=== PATIENT | female | born 1990 | race Caucasian/White ===

== ENCOUNTER → 2023-07-01 | Outpatient (CLI) | payer OTHER ==
[2023-07-01 10:12] LABS: BASO # 0.1 10^3/uL (0.0-0.2); BASO % 0.8 % (0.0-1.0); EOS # 0.1 10^3/uL (0.0-0.5); EOS % 1.4 % (0.0-3.0); HEMATOCRIT 42.2 % (36.0-47.0); HEMOGLOBIN 14.8 g/dl (12.0-15.5); LYMPH # 1.9 10^3/uL (1.5-5.0); LYMPH % 24.9 % (24.0-44.0); MEAN CORPUSCULAR HEMOGLOBIN 31.4 pg (27.0-33.0); MEAN CORPUSCULAR HGB CONC 35.1 g/dl (32.0-36.5); MEAN CORPUSCULAR VOLUME 89.4 fl (80.0-96.0); MONO # 0.6 10^3/uL (0.0-0.8); MONO % 7.5 % (2.0-8.0); NEUTROPHILS % 65.1 % (36.0-66.0); PLATELET COUNT, AUTOMATED 286 10^3/uL (150-450); RED BLOOD COUNT 4.72 10^6/uL (4.00-5.40); WHITE BLOOD COUNT 7.7 10^3/uL (4.0-10.0)
[2023-07-01 10:43] LABS: ALBUMIN 4.2 G/DL (3.2-5.2); ALKALINE PHOSPHATASE 62 U/L (46-116); ALT/SGPT 30 U/L (7.0-40); AST/SGOT 22 U/L (<34); BILIRUBIN,TOTAL 0.6 MG/DL (0.3-1.2); BLOOD UREA NITROGEN 9 MG/DL (9-23); CALCIUM LEVEL 9.3 MG/DL (8.5-10.1); CARBON DIOXIDE LEVEL 25 MMOL/L (20-31); CHLORIDE LEVEL 105 MMOL/L (98-107); GLOMERULAR FILTRATION RATE > 60.0 (>60); GLUCOSE, FASTING 90 MG/DL (60-100); POTASSIUM SERUM 4.5 MMOL/L (3.5-5.1); SODIUM LEVEL 137 MMOL/L (136-145); TOTAL PROTEIN 7.4 G/DL (5.7-8.2)
[2023-07-01 10:45] LABS: FREE T4 0.88 NG/DL (0.89-1.76); THYROID STIMULATING HORMONE 3.678 uIU/ML (0.55-4.78)
== END ==
LOC: M LAB 09:29
PROVIDERS: ATTEND Registered Nurse
DX: Z00.00 Encounter for general adult medical examination without abnormal findings (principal); J30.9 Allergic rhinitis, unspecified; R53.83 Other fatigue; R51.9 Headache, unspecified

== ENCOUNTER → 2023-08-09 | Outpatient (CLI) | payer OTHER ==
[2023-08-09 17:50] LABS: HEMATOCRIT 38.2 % (36.0-47.0); HEMOGLOBIN 13.7 g/dl (12.0-15.5); MEAN CORPUSCULAR HEMOGLOBIN 32.2 pg (27.0-33.0); MEAN CORPUSCULAR HGB CONC 35.9 g/dl (32.0-36.5); MEAN CORPUSCULAR VOLUME 89.7 fl (80.0-96.0); PLATELET COUNT, AUTOMATED 317 10^3/uL (150-450); RED BLOOD COUNT 4.26 10^6/uL (4.00-5.40); WHITE BLOOD COUNT 13.9 10^3/uL (4.0-10.0)
[2023-08-09 18:43] LABS: HIV 1&2 SCREEN NEGATIVE (NEGATIVE)
[2023-08-09 18:50] LABS: HEPATITIS C VIRUS ABY INDEX 0.03 INDEX (<0.8)
[2023-08-09 19:37] LABS: GC DNA AMPLIFICATION NEGATIVE (NEGATIVE)
== END ==
LOC: M PLALAB 15:13
PROVIDERS: ATTEND Advanced Practice Midwife
DX: Z34.01 Encounter for supervision of normal first pregnancy, first trimester (principal); Z3A.00 Weeks of gestation of pregnancy not specified

== ENCOUNTER → 2023-09-22 | Outpatient (CLI) | payer OTHER | LOC: M RAD 13:46 | PROVIDERS: ATTEND Obstetrics & Gynecology | DX: O09.92 Supervision of high risk pregnancy, unspecified, second trimester (principal); Z3A.17 17 weeks gestation of pregnancy; Z91.89 Other specified personal risk factors, not elsewhere classified ==

== ENCOUNTER → 2023-11-15 | Outpatient (CLI) | payer OTHER ==
[2023-11-15 13:39] LABS: GLUCOSE CHALLENGE TEST 1 HOUR 108 MG/DL (LESS THAN 140); HEMATOCRIT 36.8 % (36.0-47.0); HEMOGLOBIN 12.7 g/dl (12.0-15.5); MEAN CORPUSCULAR HEMOGLOBIN 32.2 pg (27.0-33.0); MEAN CORPUSCULAR HGB CONC 34.5 g/dl (32.0-36.5); MEAN CORPUSCULAR VOLUME 93.4 fl (80.0-96.0); PLATELET COUNT, AUTOMATED 246 10^3/uL (150-450); RED BLOOD COUNT 3.94 10^6/uL (4.00-5.40); WHITE BLOOD COUNT 9.6 10^3/uL (4.0-10.0)
[2023-11-15 14:21] LABS: HEPATITIS C VIRUS ABY INDEX < 0.02 INDEX (<0.8)
[2023-11-15 15:28] LABS: GC DNA AMPLIFICATION NEGATIVE (NEGATIVE)
== END ==
LOC: M PLALAB 08:18
PROVIDERS: ATTEND Advanced Practice Midwife
DX: Z34.82 Encounter for supervision of other normal pregnancy, second trimester (principal)

== ENCOUNTER → 2024-01-31 | Outpatient (REF) | payer OTHER | LOC: M SFHCWAGY 15:07 | PROVIDERS: ATTEND Specialist | DX: Z34.03 Encounter for supervision of normal first pregnancy, third trimester (principal) ==

== ENCOUNTER 2024-02-27 05:37 | Inpatient (IN) | payer OTHER ==
[2024-02-27] VITALS (53 sets, daily range): BP systolic 116–192; BP diastolic 56–106
[~2024-02-27] VITALS: Ht 149.9 cm; Wt 87.6 kg
[2024-02-27] MEDS: LACTATED RINGER'S 1000 ML IV STA (06:43)
[2024-02-27] MEDS ORDERED: METHYLERGONOVINE MALEATE 0.2MG/ML 1ML VIAL IM PRN (06:45)
[2024-02-27] MEDS ORDERED: LIDOCAINE 1% MDV 20ML VIAL INFIL PRN (06:45)
[2024-02-27] MEDS ORDERED: ACET325C5 PO (06:46)
[2024-02-27 07:06] LABS: HEMOGLOBIN 12.2 g/dl (12.0-15.5); MEAN CORPUSCULAR HEMOGLOBIN 31.4 pg (27.0-33.0); MEAN CORPUSCULAR HGB CONC 34.9 g/dl (32.0-36.5); PLATELET COUNT, AUTOMATED 158 10^3/uL (150-450); RED BLOOD COUNT 3.89 10^6/uL (4.00-5.40); WHITE BLOOD COUNT 8.9 10^3/uL (4.0-10.0)
[2024-02-27 08:08] LABS: HEPATITIS C VIRUS ABY INDEX < 0.02 INDEX (<0.8)
[2024-02-27 08:21] LABS: LDH LACTATE DEHYDROGENASE 206 U/L (120-246)
[2024-02-27 08:22] LABS: ALT/SGPT 13 U/L (7.0-40); AST/SGOT 22 U/L (<34); BILIRUBIN,TOTAL 0.2 MG/DL (0.3-1.2); CREATININE FOR GFR 0.77 MG/DL (0.55-1.30); GLOMERULAR FILTRATION RATE > 60.0 (>60)
[2024-02-27 08:48] LABS: TOTAL PROTEIN,RANDOM URINE 34.2 MG/DL (0.0-14.0)
[2024-02-27] MEDS: LR 1,000 ML IV SCH (09:55)
[2024-02-27] MEDS: OXYTOCIN DRIP 30 UNITS in IV 1 EA IV SCH (09:55)
[2024-02-27] MEDS: LABETALOL 100MG/20ML VIAL IV STA (11:40)
[2024-02-27] MEDS ORDERED: NALOXONE INJ 0.4MG/1ML VIAL IV PRN (12:25)
[2024-02-27] MEDS ORDERED: EPIDURAL/PCA KEYS XX PRN (12:25)
[2024-02-27] MEDS ORDERED: ePHEDrine SULFATE 25 MG/5 ML(5MG/ML) SYRINGE IVP PRN (12:25)
[2024-02-27] MEDS ORDERED: diphenhydrAMINE 50MG/ML VIAL IV PRN (12:25)
[2024-02-27] MEDS ORDERED: LR 500 ML IV PRN (12:25)
[2024-02-27] MEDS: FENTANYL/ROPIVACAINE/NACL BAG 100 ML EPIDURAL SCH (12:58)
[2024-02-27] MEDS: ceFAZolin SOD 2 GM in IV 1 EA IV ONE (19:56)
[2024-02-27] MEDS: ACETAMINOPHEN 500 MG TAB PO ONE (19:56)
[2024-02-27] MEDS: AMPICILLIN SOD/SULBACTAM SOD 3 GM in D5W MINI-BAG PLUS 100 ML IV ONE (20:28)
[2024-02-28] VITALS (31 sets, daily range): BP systolic 111–180; BP diastolic 58–95; O2SAT 97
[2024-02-28] MEDS: AMPICILLIN SOD/SULBACTAM SOD 3 GM in D5W MINI-BAG PLUS 100 ML IV ONE (02:38)
[2024-02-28] MEDS: ACETAMINOPHEN 500 MG TAB PO ONE (02:39)
[2024-02-28] MEDS: LABETALOL 100MG/20ML VIAL IV STA ×2 (03:02→04:01)
[2024-02-28 08:12] LABS: CORD GAS HCO3 V 19.2 MMOL/L; CORD GAS O2 SAT V 69.2 %; CORD GAS PCO2 V 33.5 mmHg; CORD GAS PH V 7.376 UNITS; CORD GAS PO2 V 30.9 mmHg; CORD GAS SBC V 19.7 MMOL/L; CORD GAS TCO2 V 20.2 MMOL/L
[2024-02-28 08:15] LABS: CORD GAS ABE A -7.6; CORD GAS HCO3 A 18.2 MMOL/L; CORD GAS O2 SAT A 40.2 %; CORD GAS PH A 7.298 UNITS; CORD GAS PO2 A 19.2 mmHg; CORD GAS SBC A 17.2 MMOL/L; CORD GAS TCO2 A 19.4 MMOL/L
[2024-02-28] MEDS: TRANEXAMIC ACID INJection 1,000 MG in NS 100 ML IV PRN (08:16)
[2024-02-28] MEDS: OXYTOCIN DRIP 30 UNITS in IV 1 EA IV PRN (08:16)
[2024-02-28] MEDS: CARBOPROST TROMETHAMINE 250 MCG/ML AMP IM PRN (08:17)
[2024-02-28] MEDS: ONDANSETRON 4MG 2ML VIAL IV PRN (08:29)
[2024-02-28] MEDS: LOPERAMIDE 2 MG CAPLET PO ONE (08:45)
[2024-02-28] MEDS ORDERED: ACETAMINOPHEN TAB 650MG DOSE (2X325MG) PO PRN (09:10)
[2024-02-28] MEDS ORDERED: ANUSOL HC CREAM 30GM TOP PRN (09:10)
[2024-02-28] MEDS ORDERED: MOM 30ML SUSPENSION UDC PO PRN (09:10)
[2024-02-28] MEDS ORDERED: DOCUSATE SODIUM 100MG CAPSULE PO PRN (09:10)
[2024-02-28] MEDS ORDERED: RHO(D) IMMUNE GLOBULIN/MALTOSE 500MCG(2500IU)/2.2ML VIAL (WINRHO) IM SCH (09:10)
[2024-02-28] MEDS: IBUPROFEN 800 MG TAB PO PRN (13:10)
[2024-02-28] MEDS: DIBUCAINE 1% OINTMENT 30GM TOP PRN (16:44)
[2024-02-28] MEDS: ACETAMINOPHEN 500 MG TAB PO PRN (16:45)
[2024-02-28] MEDS: IBUPROFEN 600MG TAB PO PRN (21:12)
[2024-02-29 06:00] VITALS: BP 120/70; O2SAT 99
[2024-02-29] MEDS: PRENATAL VITAMINS CHEWABLE TABLET PO SCH (07:54)
[2024-02-29 19:01] VITALS: BP 135/73; O2SAT 100
[2024-03-01 06:00] VITALS: BP 134/74; O2SAT 98
[2024-03-01] MEDS ORDERED: IBUP-1022 PO (08:32)
[2024-03-01] MEDS ORDERED: COLA100C5 PO (08:32)
[2024-03-01] MEDS ORDERED: NORE0.353 PO (08:32)
[2024-03-01] MEDS ORDERED: ACET-683 PO (08:32)
[2024-03-01] MEDS ORDERED: MEASLES,MUMPS,RUBELLA VACCINE INJ (MMR-II) SC.IMMUN ONE (09:00)
== END 2024-03-01 10:50 | disposition home or self-care (01) | DRG 560 ==
LOC: M LDO 05:37 → M LDI 05:54 → M OBS 02-28 14:23
PROVIDERS: ADMIT Obstetrics & Gynecology; ATTEND Advanced Practice Midwife
PROC: 3E033VJ Introduction of Other Hormone into Peripheral Vein, Percutaneous Approach (ICD-10-PCS; 2024-02-27)
PROC: 10E0XZZ Delivery of Products of Conception, External Approach (ICD-10-PCS; principal; 2024-02-28)
PROC: 0KQM0ZZ Repair Perineum Muscle, Open Approach (ICD-10-PCS; 2024-02-28)
PROC: 0HB7XZX Excision of Abdomen Skin, External Approach, Diagnostic (ICD-10-PCS; 2024-02-28)
DX: O14.14 Severe pre-eclampsia complicating childbirth (principal); O41.1230 Chorioamnionitis, third trimester, not applicable or unspecified; O72.1 Other immediate postpartum hemorrhage; Z3A.40 40 weeks gestation of pregnancy; O70.1 Second degree perineal laceration during delivery; R19.04 Left lower quadrant abdominal swelling, mass and lump; R19.03 Right lower quadrant abdominal swelling, mass and lump; Z37.0 Single live birth; O99.892 Other specified diseases and conditions complicating childbirth

== ENCOUNTER → 2024-07-27 | Outpatient (CLI) | payer OTHER ==
[~2024-07-27] MED LIST: ACET-683 PO; ACET325C5 PO; COLA100C5 PO; IBUP-1022 PO; NORE0.353 PO
[2024-07-27 12:02] LABS: BASO # 0.1 10^3/uL (0.0-0.2); BASO % 0.9 % (0.0-1.0); EOS # 0.2 10^3/uL (0.0-0.5); EOS % 2.5 % (0.0-3.0); HEMOGLOBIN 12.6 g/dl (12.0-15.5); LYMPH # 2.5 10^3/uL (1.5-5.0); LYMPH % 39.4 % (24.0-44.0); MEAN CORPUSCULAR HEMOGLOBIN 25.5 pg (27.0-33.0); MEAN CORPUSCULAR HGB CONC 31.5 g/dl (32.0-36.5); MEAN CORPUSCULAR VOLUME 80.8 fl (80.0-96.0); MONO # 0.5 10^3/uL (0.0-0.8); MONO % 7.1 % (2.0-8.0); NEUTROPHILS # 3.2 10^3/uL (1.5-8.5); NEUTROPHILS % 49.9 % (36.0-66.0); PLATELET COUNT, AUTOMATED 329 10^3/uL (150-450); RED BLOOD COUNT 4.95 10^6/uL (4.00-5.40); WHITE BLOOD COUNT 6.4 10^3/uL (4.0-10.0)
[2024-07-27 12:32] LABS: ALBUMIN 4.1 G/DL (3.2-5.2); ALKALINE PHOSPHATASE 103 U/L (35-104); ALT/SGPT 24 U/L (7.0-40); AST/SGOT 19 U/L (<34); BILIRUBIN,TOTAL 0.5 MG/DL (0.3-1.2); BLOOD UREA NITROGEN 12 MG/DL (9-23); CARBON DIOXIDE LEVEL 28 MMOL/L (20-31); CHLORIDE LEVEL 107 MMOL/L (98-107); CREATININE FOR GFR 0.76 MG/DL (0.55-1.30); GLOMERULAR FILTRATION RATE > 60.0 (>60); GLUCOSE, FASTING 95 MG/DL (60-100); IRON (FE) 39 UG/DL (50-170); POTASSIUM SERUM 4.3 MMOL/L (3.5-5.1); SODIUM LEVEL 140 MMOL/L (136-145); TOTAL PROTEIN 7.6 G/DL (5.7-8.2)
[2024-07-27 12:33] LABS: TOTAL IRON BINDING CAPACITY 431 UG/DL (250-425)
[2024-07-27 12:34] LABS: FERRITIN 7.5 NG/ML (7.3-270.7)
[2024-07-27 12:35] LABS: VITAMIN B12 LEVEL 595 PG/ML (211-911)
== END ==
LOC: M LAB 11:39
PROVIDERS: ATTEND Registered Nurse
DX: N92.1 Excessive and frequent menstruation with irregular cycle (principal)

== ENCOUNTER → 2024-10-18 | Outpatient (REF) | payer OTHER ==
[2024-10-20 16:57] LABS: HPV APTIMA Not Detected (Not Detected)
== END ==
LOC: M PLALAB 08:51
PROVIDERS: ATTEND Advanced Practice Midwife
DX: Z12.4 Encounter for screening for malignant neoplasm of cervix (principal)
CPT/HCPCS: 87624; G0123

== ENCOUNTER → 2025-01-08 | Outpatient (CLI) | payer OTHER | LOC: M ADAMS 13:06 | PROVIDERS: ATTEND Registered Nurse | DX: M79.672 Pain in left foot (principal) ==